=== PATIENT | male | born 1980 | race Caucasian/White ===

== ENCOUNTER 2017-08-30 14:03 | Day surgery (SDC) | payer OTHER ==
[2017-08-30] MEDS ORDERED: BACITRACIN/POLYMYXIN 28.35 GM OINT TOP (18:27)
[2017-08-30] MEDS ORDERED: FENTAnyl 50 MCG/ML VIAL ×2 (19:04→20:12)
[2017-08-30] MEDS ORDERED: MIDAZOLAM 1 MG/ML 2 ML INJ (19:04)
[2017-08-30] MEDS ORDERED: DEXAMETHASONE 4 MG/ML 1 ML INJ (19:23)
[2017-08-30] MEDS: LIDOCAINE 1%/EPI 30 ML INJ ×2 (19:29→19:43)
[2017-08-30] MEDS: COCAINE 4% 4 ML TOP (19:29)
[2017-08-30] MEDS ORDERED: LIDOCAINE 100 MG SYRINGE (19:51)
[2017-08-30] MEDS ORDERED: GLYCOPYRROLATE 0.4 MG INJ (19:51)
[2017-08-30] MEDS ORDERED: ROCURONIUM 50 MG INJ (19:51)
[2017-08-30] MEDS ORDERED: NEOSTIGMINE 3 MG/3 ML SYRINGE (19:51)
[2017-08-30] MEDS ORDERED: PROPOFOL 20 ML (19:51)
[2017-08-30] MEDS ORDERED: CEFAZOLIN 1 GM INJ (19:51)
[2017-08-30] MEDS ORDERED: ONDANSETRON 4 MG INJ (19:52)
[2017-08-30] MEDS: FENTAnyl 50 MCG/ML VIAL IV ×2 (20:10→20:25)
[2017-08-30] MEDS ORDERED: ONDANSETRON 4 MG INJ IV (20:30)
[2017-08-30] MEDS ORDERED: MEPERIDINE 25 MG INJ IV (20:30)
[2017-08-30] MEDS ORDERED: HYDROmorphONE (0.2 MG/ML) 10ML SYG IV ×2 (20:30)
[2017-08-30] MEDS ORDERED: LABETALOL HCL 20MG INJ IV (20:30)
[2017-08-30] MEDS ORDERED: ALBUTEROL 0.083% (NEB) 2.5 MG/3 ML AMP HHN (20:30)
[2017-08-30] MEDS ORDERED: DIPHENHYDRAMINE 50 MG INJ IV (20:30)
[2017-08-30] MEDS: HYDROCODONE/APAP (5/325) TAB PO (20:32)
== END 2017-08-30 21:10 | disposition home or self-care (01) ==
LOC: SDS 14:03
DX: J34.2 Deviated nasal septum (principal)
CPT/HCPCS: 30140